=== PATIENT | male | born 2000 | race Caucasian/White ===

== ENCOUNTER 2022-05-12 18:52 | Emergency (ER) | payer MEDICAID ==
[~2022-05-12] VITALS: Ht 170.2 cm; Wt 59.0 kg
[2022-05-12] MEDS ORDERED: mupirocin 2% ointment 22GM TP ONE (19:10)
[2022-05-12] MEDS ORDERED: ondansetron 4mg rapidly disintigrating tab PO ONE (19:10)
[2022-05-12] MEDS ORDERED: LIDOcaine/epinephrine/tetracaine TOPICAL sol 3 ML syringe TOP ONE (19:12)
[2022-05-12] MEDS ORDERED: morphine 4 MG/ML inj SYRINge IM ONE (19:15)
--- NOTE | 2022-05-12 19:30 | NUR ---
INJURY REPORTED TO [facility].
[2022-05-12] MEDS ORDERED: ondansetron/PF 4mg/2ml inj IV ONE (19:50)
[2022-05-12] MEDS ORDERED: acetaminophen 325mg tablet PO ONE (19:55)
[2022-05-12] MEDS ORDERED: ketorolac trometh. 30mg/ml inj. IV ONE (19:55)
[2022-05-12] MEDS ORDERED: HYDR-3965 PO (20:01)
[2022-05-12] MEDS ORDERED: MELO-100 PO (20:01)
[2022-05-12] MEDS ORDERED: morphine 4 MG/ML inj SYRINge IV ONE (20:05)
[2022-05-12 22:21] VITALS: BP 118/68
[2022-05-20] MEDS ORDERED: HYDR-3972 PO (13:19)
== END 2022-05-12 22:15 | disposition home or self-care (01) ==
LOC: ER 18:53
DX: S42.002A Fracture of unspecified part of left clavicle, initial encounter for closed fracture (principal); X58.XXXA Exposure to other specified factors, initial encounter; Y93.89 Activity, other specified; Y92.89 Other specified places as the place of occurrence of the external cause; Y99.8 Other external cause status
CPT/HCPCS: 71045; 73030; 73560; 96374; 96375; 99284; A6223; J1885; J2270; J2405; J3490; J7030; A6258; A6446; A6449

== ENCOUNTER 2022-05-23 10:57 | Day surgery (SDC) | payer MEDICAID ==
[~2022-05-23] VITALS: Ht 170.2 cm; Wt 61.0 kg
[2022-05-23] VITALS (9 sets, daily range): BP systolic 102–127; BP diastolic 67–95
[~2022-05-23 10:57] MED LIST: HYDR-3972 PO; famotidine 20mg tablet PO ONE; ringers solution, lacted 1,000 ML IV SCH
[2022-05-23] MEDS ORDERED: ceFAZolin inj. 2,000 MG in dextrose 5%-water 50ml 50 ML IV ONE (12:10)
[2022-05-23] MEDS ORDERED: BUPIVAcaine/PF 2.5 mg/ml (0.25%) 30ml vial ONE (14:20)
[2022-05-23] MEDS ORDERED: sevoflurane 250ml liquid IH ONE (14:48)
[2022-05-23] MEDS ORDERED: midazolam 1 mg/ML 2ml injection ONE (14:50)
[2022-05-23] MEDS ORDERED: fentaNYL/PF 50MCG/1 ML 2ML syringe ONE (14:50)
[2022-05-23] MEDS ORDERED: propofol inj 20 ML IV ONE (14:54)
[2022-05-23] MEDS ORDERED: morphine 2 MG/ML inj. syringe IV PRN (15:10)
[2022-05-23] MEDS ORDERED: ondansetron/PF 4mg/2ml inj IV PRN (15:10)
[2022-05-23] MEDS ORDERED: morphine 4 MG/ML inj SYRINge IV PRN (15:10)
[2022-05-23] MEDS ORDERED: meperidine/PF 25mg/ml syringe IV PRN ×3 (15:10)
[2022-05-23] MEDS ORDERED: ketorolac trometh. 30mg/ml inj. IV ONE (15:10)
[2022-05-23] MEDS ORDERED: proCHLORperazine 10 MG/2 ml inj IV PRN (15:10)
[2022-05-23] MEDS ORDERED: ringers solution, lacted 1,000 ML IV SCH (15:10)
[2022-05-23] MEDS ORDERED: dexamethasone sod phosphate 4mg/ml inj. ONE (15:51)
[2022-05-23] MEDS ORDERED: ondansetron/PF 4mg/2ml inj ONE (15:51)
--- NOTE | 2022-05-23 16:09 | NUR ---
Received from OR via [facility], accompanied by Anesthesiologist and report given by MICHOACANO Anesthesiologist. PATIENT STILL SEDATED WITH LMA, NO S/S OF PAIN, V/S WNL, 20G TO RIGHT FOREARM, LEFT CLAVICLE DRESSING C/D/I with ICE PACK AND ARM SLING. Addendum: 05/23/22 at 1640 by Alex Trevino RN Amended: Links added.
--- NOTE | 2022-05-23 17:29 | NUR ---
ALL DISCHARGE CRITERIA HAS BEEN MET. VSS, PAIN AT A TOLERABLE LEVEL, ABLE TO SAFELY AMBULATE AND TRANSFER SELF. IV TAKEN OUT WITHOUT ANY COMPLICATIONS. ALL DISCHARGE INSTRUCTIONS COVERED WITH PATIENT AND ALL QUESTIONS ANSWERED. PATIENT TAKEN OUT VIA WHEELCHAIR WITH ALL BELONGINGS TO PERSONAL VEHICLE WHERE FAMILY DROVE PATIENT HOME. Addendum: 05/23/22 at 1733 by Alex Trevino RN Amended: Links added.
== END 2022-05-23 17:29 | disposition home or self-care (01) ==
LOC: PAS 10:57
PROVIDERS: ATTEND Orthopaedic Surgery
DX: S42.022A Displaced fracture of shaft of left clavicle, initial encounter for closed fracture (principal); Z79.899 Other long term (current) drug therapy; V29.99XA Rider (driver) (passenger) of other motorcycle injured in unspecified traffic accident, initial encounter; Y93.89 Activity, other specified; Y92.89 Other specified places as the place of occurrence of the external cause; Y99.8 Other external cause status; Z98.890 Other specified postprocedural states
CPT/HCPCS: 23515; 73000; 82948; A6222; C1713; J0690; J1100; J1885; J2175; J2250; J2270; J2405; J2704; J3010; J3490; J7030; J7060; J7120; Z7506; Z7508; Z7512; 76000; A4565; A4618; A6449; A7000